=== PATIENT | female | born 1990 | race American Indian/Alaskan Native ===

== ENCOUNTER 2017-07-08 20:23 | Emergency (ER) | payer SELFPAY ==
[2017-07-08 22:41] LABS: Basophils % (Auto) 1.1 % (0.0-1.8); Eosinophils % (Auto) 1.5 % (0.0-4.3); Hematocrit 39.5 % (30.3-42.9); Mean Corpuscular HGB Conc 33 % (30-34); Mean Corpuscular Volume 78 fl (79-97); Platelet Count 195 K/mm3 (140-440); Red Blood Count 5.05 M/mm3 (3.65-5.03); Red Cell Distribution Width 14.4 % (13.2-15.2); White Blood Count 9.5 K/mm3 (4.5-11.0)
[2017-07-08 22:42] LABS: Mean Corpuscular Hemoglobin 26 pg (28-32)
[2017-07-08 22:47] LABS: Anion Gap 22 mmol/L; BUN/Creatinine Ratio 10; Blood Urea Nitrogen 7 mg/dL (7-17); Calcium 9.7 mg/dL (8.4-10.2); Carbon Dioxide 25 mmol/L (22-30); Glucose 83 mg/dL (65-100); Potassium 3.9 mmol/L (3.6-5.0); Sodium 139 mmol/L (137-145)
--- NOTE | 2017-07-08 23:35 | XRay Report ---
FINAL REPORT PROCEDURE: XR CHEST ROUTINE 2V TECHNIQUE: PA and lateral chest radiographs were obtained. CPT 87504 HISTORY: cough COMPARISON: No prior studies are available for comparison. FINDINGS: Heart: Normal. Mediastinum/Vessels: Normal. Lungs/Pleural space: Normal. Bony thorax: No acute osseous abnormality. Other: IMPRESSION: Normal examination.
[2017-07-09 00:04] LABS: Bilirubin,Urine NEG (Negative); Blood,Urine LG (Negative); Ketones,Urine 20 mg/dL (Negative); Leukocyte Esterase,Urine TR (Negative); Mucus,Urine FEW /HPF; Nitrite,Urine NEG (Negative); Protein,Urine <15 mg/dL mg/dL (Negative); Urobilinogen,Urine < 2.0 mg/dL (<2.0)
[2017-07-09 00:21] LABS: WBC,Urine < 1.0 /HPF (0.0-6.0)
[2017-07-09] MEDS ORDERED: ZOFRAN IV ONE (02:27)
--- NOTE | 2017-07-09 06:36 | Emergency Department Report ---
ED General Adult HPI - General Chief complaint: Nausea/Vomiting/Diarrhea Stated complaint: COUGH, CHILLS, WEAK AND DIARRHEA Time Seen by Provider: 07/09/17 06:21 Source: patient Mode of arrival: Ambulatory Limitations: No Limitations - History of Present Illness Initial comments: Patient complains of nausea vomiting and diarrhea. She was given Zofran for nausea. She hasn't had diarrhea since yesterday. Symptoms duration has been 2- 3 days. She states she is working at a "[employer] She's had no fever or chills. She does not complain of abdominal pain. -: Gradual, days(s) Quality: other (has some cramping only) Consistency: intermittent Improves with: none Worsens with: none Associated Symptoms: denies other symptoms (except as above) - Related Data Previous Rx's Medication Instructions Recorded Last Taken Type Butalb/Acetaminophen/Caffeine 1 cap PO Q6HR PRN #14 cap 06/21/17 Unknown Rx [Fioricet 50-300-40 mg CAP] Ondansetron [Zofran Odt] 4 mg PO Q6H PRN #7 tab.rapdis 07/09/17 Unknown Rx traMADol [Ultram] 50 mg PO Q4HR PRN #10 tablet 07/09/17 Unknown Rx Allergies Allergy/AdvReac Type Severity Reaction Status Date / Time ibuprofen Allergy Swelling Verified 06/21/17 11:11 morphine Allergy Swelling Verified 06/21/17 11:11 ED Review of Systems ROS: Stated complaint: COUGH, CHILLS, WEAK AND DIARRHEA Other details as noted in HPI Constitutional: denies: chills, fever Eyes: denies: eye pain, eye discharge, vision change ENT: denies: ear pain, throat pain Respiratory: denies: cough, shortness of breath, wheezing Cardiovascular: denies: chest pain, palpitations Endocrine: no symptoms reported Gastrointestinal: as per HPI, nausea, vomiting. denies: diarrhea Genitourinary: denies: urgency, dysuria, discharge Musculoskeletal: denies: back pain, joint swelling, arthralgia Skin: denies: rash, lesions Neurological: denies: headache, weakness, paresthesias Psychiatric: denies: anxiety, depression Hematological/Lymphatic: denies: easy bleeding, easy bruising ED Past Medical Hx - Past Medical History Previous Medical History?: Yes Additional medical history: Hyperthroidism - Surgical History Past Surgical History?: No - Social History Smoking Status: Never Smoker Substance Use Type: None - Medications Home Medications: Home Medications Medication Instructions Recorded Confirmed Last Taken Type Butalb/Acetaminophen/Caffeine 1 cap PO Q6HR PRN #14 cap 06/21/17 Unknown Rx [Fioricet 50-300-40 mg CAP] Ondansetron [Zofran Odt] 4 mg PO Q6H PRN #7 tab.rapdis 07/09/17 Unknown Rx traMADol [Ultram] 50 mg PO Q4HR PRN #10 tablet 07/09/17 Unknown Rx ED Physical Exam - General Limitations: No Limitations General appearance: alert, in no apparent distress - Head Head exam: Present: atraumatic, normocephalic - Eye Eye exam: Present: normal appearance - ENT ENT exam: Present: mucous membranes moist - Neck Neck exam: Present: normal inspection - Respiratory Respiratory exam: Present: normal lung sounds bilaterally. Absent: respiratory distress - Cardiovascular Cardiovascular Exam: Present: regular rate, normal rhythm. Absent: systolic murmur, diastolic murmur, rubs, gallop - GI/Abdominal GI/Abdominal exam: Present: soft, normal bowel sounds. Absent: distended, tenderness, guarding, rebound, rigid - Extremities Exam Extremities exam: Present: normal inspection - Back Exam Back exam: Present: normal inspection - Neurological Exam Neurological exam: Present: alert, oriented X3, CN II-XII intact. Absent: motor sensory deficit - Psychiatric Psychiatric exam: Present: normal affect, normal mood - Skin Skin exam: Present: warm, dry, intact, normal color. Absent: rash ED Course Vital Signs 07/08/17 07/09/17 07/09/17 21:46 02:03 03:56 Temperature 99.4 F 99.7 F H 99.7 F H Pulse Rate 98 H 108 H 95 H Respiratory 19 18 18 Rate Blood Pressure 103/65 Blood Pressure 112/73 102/49 [Right] O2 Sat by Pulse 97 97 95 Oximetry 07/09/17 06:18 Temperature 99.2 F Pulse Rate 94 H Respiratory 16 Rate Blood Pressure Blood Pressure 115/69 [Right] O2 Sat by Pulse 97 Oximetry - Reevaluation(s) Reevaluation #1: Given IV fluid and discharged in stable condition. Follow-up with primary care provider. 07/09/17 08:15 ED Medical Decision Making - Lab Data Result diagrams: 07/08/17 22:09 07/08/17 22:09 Laboratory Results - last 24 hr 07/08/17 07/08/17 07/08/17 02:33 22:09 22:09 WBC 9.5 RBC 5.05 H Hgb 13.0 Hct 39.5 MCV 78 L MCH 26 L MCHC 33 RDW 14.4 Plt Count 195 Lymph % (Auto) 18.4 [place] % (Auto) 11.3 H Eos % (Auto) 1.5 Baso % (Auto) 1.1 Lymph # 1.7 [place] # 1.1 H Eos # 0.1 Baso # 0.1 Seg Neutrophils % 67.7 Seg Neutrophils # 6.4 Sodium 139 Potassium 3.9 Chloride 96.0 L Carbon Dioxide 25 Anion Gap 22 BUN 7 Creatinine 0.7 Estimated GFR > 60 BUN/Creatinine Ratio 10 Glucose 83 Calcium 9.7 Lipase 28 Urine Color Urine Turbidity Urine pH Ur Specific [place] Urine Protein Urine Glucose (UA) Urine Ketones Urine Blood Urine Nitrite Urine Bilirubin Urine Urobilinogen Ur Leukocyte Esterase Urine WBC (Auto) Urine RBC (Auto) U Epithel Cells (Auto) Amorphous Crystals Urine Mucus Urine HCG, Qual 07/08/17 Unknown WBC RBC Hgb Hct MCV MCH MCHC RDW Plt Count Lymph % (Auto) [place] % (Auto) Eos % (Auto) Baso % (Auto) Lymph # [place] # Eos # Baso # Seg Neutrophils % Seg Neutrophils # Sodium Potassium Chloride Carbon Dioxide Anion Gap BUN Creatinine Estimated GFR BUN/Creatinine Ratio Glucose Calcium Lipase Urine Color Yellow Urine Turbidity Clear Urine pH 7.0 Ur Specific [place] 1.020 Urine Protein <15 mg/dl Urine Glucose (UA) Neg Urine Ketones 20 Urine Blood Lg Urine Nitrite Neg Urine Bilirubin Neg Urine Urobilinogen < 2.0 Ur Leukocyte Esterase Tr Urine WBC (Auto) < 1.0 Urine RBC (Auto) 1.0 U Epithel Cells (Auto) 7.0 Amorphous Crystals 1+ Urine Mucus Few Urine HCG, Qual Negative Critical care attestation.: If time is entered above; I have spent that time in minutes in the direct care of this critically ill patient, excluding procedure time. ED Disposition Clinical Impression: Gastroenteritis, Dehydration Disposition: [id number] TO HOME OR SELFCARE Is pt being admited?: No Does the pt Need Aspirin: No Condition: Stable Instructions: Gastroenteritis (ED), Acute Nausea and Vomiting (ED), Dehydration (ED) Additional Instructions: Increase fluids. Light diet. Follow-up with her primary care provider. Rx if needed for pain and nausea. Return any acute change or worsening symptoms. Prescriptions: Ondansetron [Zofran Odt] 4 mg PO Q6H PRN #7 tab.rapdis PRN Reason: Nausea traMADol [Ultram] 50 mg PO Q4HR PRN #10 tablet PRN Reason: Pain Referrals: PRIMARY CARE, [Primary Care Provider] - 3-5 Days [facility] [Provider Group] - 3-5 Days Time of Disposition: 08:17
[2017-07-09] MEDS ORDERED: NACL 0.9% 1000 ML 1,000 ML IV ONE (07:35)
[2017-07-09 08:48] VITALS: BP 110/70
== END 2017-07-09 08:47 | disposition home or self-care (01) ==
LOC: ED 20:23
DX: K52.9 Noninfective gastroenteritis and colitis, unspecified (principal); E86.0 Dehydration; E05.90 Thyrotoxicosis, unspecified without thyrotoxic crisis or storm; Z88.6 Allergy status to analgesic agent
CPT/HCPCS: 36415; 71020; 80048; 81001; 81025; 83690; 85025; 96361; 96374; 99284; J2405; J7030